=== PATIENT | female | born 1995 | race Caucasian/White ===

== ENCOUNTER 2018-01-13 12:15 | Emergency (ER) | payer OTHER ==
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
--- NOTE | 2018-01-13 13:16 | CT ---
Head wo Cont CLINICAL HISTORY: Trauma, confusion COMPARISON: None TECHNIQUE: Transverse scans were obtained from the base of the skull through the vertex without IV co ntrast on a multislice, multidetector CT scanner. Auto dosage reduction and iterative reconstruction techniques employed. FINDINGS: No focal abnormal parenchymal density is identified. There is CSF density in the anterior p ortion of the right temporal fossa. It measures 1.8 x 2.2 cm This is most consistent with an arachnoi d cyst. There is no mass effect, hemorrhage, or extraaxial collection. The basal cisterns and sulci o demetrius the convexities are otherwise normal. The ventricles are normal. IMPRESSION: Small arachnoid cyst in the right temporal fossa No focal lesion, hemorrhage or extra-axial collection
--- NOTE | 2018-01-13 13:23 | CT ---
Max Facial Sinus wo Cont CLINICAL HISTORY: Patient, TECHNIQUE: Multiple thin slice axial images were performed through the facial bones. The images were reconstructed in the coronal and sagittal planes. Auto dosage reduction and iterative reconstruction techniques employed. FINDINGS: There is soft tissue swelling and edema over the right lateral mandible . No fractures iden tified in the mandible or facial bones. Segmented arches are intact. The bony orbits have a normal. T here is no mass or hematoma. The globes have normal contour. There is a small calcification in the ce ntral left retina consistent with a small drusen. IMPRESSION: Soft tissue swelling over the right lateral mandible. No fracture
== END 2018-01-13 14:10 | disposition home or self-care (01) ==
LOC: JP.ED 12:15
DX: S09.90XA Unspecified injury of head, initial encounter (principal); Z88.8 Allergy status to other drugs, medicaments and biological substances; Z88.5 Allergy status to narcotic agent; Y93.16 Activity, rowing, canoeing, kayaking, rafting and tubing; W22.8XXA Striking against or struck by other objects, initial encounter
CPT/HCPCS: 70450; 70450-26; 70486; 70486-26; 99284-25